=== PATIENT | female | born 1995 | race Caucasian/White ===

== ENCOUNTER 2024-01-09 09:28 | Outpatient (CLI) | payer BC, SELFPAY ==
[2024-01-11 05:34] LABS: HPV Source Cervix; HPV, High Risk by TMA Not Detected
== END 2024-01-09 09:29 | disposition home or self-care (01) ==
PROVIDERS: Visit Provider Obstetrics & Gynecology
DX: Z00.00 Encounter for general adult medical examination without abnormal findings (principal); E66.9 Obesity, unspecified; E28.2 Polycystic ovarian syndrome; Z12.4 Encounter for screening for malignant neoplasm of cervix
CPT/HCPCS: 84146; 84443; 87624; 87625; 88141; 88142